=== PATIENT | female | born 1995 | race Caucasian/White ===

== ENCOUNTER 2016-09-12 07:56 | Emergency (ER) | payer MEDICAID, OTHER ==
[2016-09-12 08:03] VITALS: BP 134/78
[2016-09-12] MEDS ORDERED: HYDROmorphone 1 MG/ML Syringe IM ONE (08:24)
--- NOTE | 2016-09-12 08:31 | EDM.PDOC ---
ED HPI GI/ABDOMINAL - General Chief Complaint: Abdominal Pain Stated Complaint: MISCARRIAGE BAD PAIN Time Seen by Provider: 09/12/16 08:18 Source of Information: Reports: Patient History Limitations: Reports: No limitations - History of Present Illness INITIAL COMMENTS - FREE TEXT/NARRATIVE: History and physical: History of present illness: [Comes to the ER complaining of lower abdominal and low back cramping. Rates the cramping as "severe". Went to the ER on 09/10/16 in [place], and was told that she is having a miscarriage. Had an ultrasound and lab work at that time, which confirmed miscarriage. She was approx 13 weeks and 4 days . She continues to experience bleeding, cramping, and passing clots. Pain has worsened over the past 1-2 days. Feels like menstrual cramps, but is more intense. She denies fever, chills, nausea and vomiting. No chest pain, SOA or dyspnea. She took 1 Tramadol just prior to arrival that she had at home from a previous injury. Otherwise, has no complaints or concerns. ] Review of Systems: As per history of present illness and below otherwise all systems reviewed and negative. Past medical history: As per history of present illness and as reviewed below otherwise noncontributory. Surgical history: As per history of present illness and is reviewed below other [place]oya noncontributory. Social history: No reported history of drug or alcohol abuse. Family history: As per history of present illness and is reviewed below otherwise noncontributory. Physical exam: HEENT: Atraumatic, normocephalic. Lungs: Clear to auscultation, breath sounds equal bilaterally, chest nontender. Heart: S1-S2, regular, negative for clicks, rubs, or JVD. Abdomen: Soft, nondistended, nontender with palpation. Negative for masses or hepatosplenomegaly. Pelvis: Stable, nontender. Genitourinary: Deferred. Rectal: Deferred. Neuro: Awake, alert, oriented. Cranial nerves II through XII unremarkable. Psych: well groomed, makes good eye contact. Diagnostics: [Beta quant Hcg] Therapeutics: [Dilaudid 1 mg] Impression: abdominal pain [Spontaneous miscarriage] Plan: [Discussed w/ pt that abdominal cramping and low back discomfort certainly are not unexpected during a miscarriage, and that symptoms should resolve in time. Pt is given Dilaudid 1 mg IM in ER. Rx for hydrocodone 5/325mg (#10) si po q 6 hours prn pain 0 RF's given. Tylenol alternating with ibuprofen prn mild to moderate pain. Follow up with Dr. Rodrigez in next 48-72 hours. She is in agreement w/ today's plan. All questions are answered and concerns are addressed. ] Definitive disposition and diagnosis is appropriate pending reevaluation and review of above. - Related Data Allergies/ADRs: Allergies Allergy/AdvReac Type Severity Reaction Status Date / Time doxycycline Allergy Other Verified 09/12/16 08:04 latex Allergy Rash Verified 09/12/16 08:04 Penicillins Allergy Hives Verified 09/12/16 08:04 Home Meds: Home Meds traMADol [Ultram] 50 mg PO Q6H PRN 09/12/16 [History] Past Medical History TUBE BENDER HAND History: Reports: Spontaneous - Past Surgical History HEENT Surgical History: Reports: Other (see below) Other HEENT Surgeries/Procedures: wisdom teeth extraction Social & Family History - Family History Family Medical History: Noncontributory - Tobacco Use Smoking Status *Q: Current Every Day Smoker Years of Tobacco use: 4 Packs/Tins Daily: 0.5 - Caffeine Use Caffeine Use: Reports: Soda - Recreational Drug Use Recreational Drug Use: No ED ROS GENERAL - Review of Systems Review Of Systems: ROS reveals no pertinent complaints other than HPI. ED EXAM, GI/ABD - Physical Exam Exam: See Below Course - Vital Signs Last Recorded V/S: Last Vital Signs Temp 98.1 F 09/12/16 08:00 Pulse 83 09/12/16 08:00 Resp 18 09/12/16 08:00 BP 134/78 09/12/16 08:00 Pulse Ox 99 09/12/16 08:00 - Orders/Labs/Meds Orders: Active Orders 24 hr Category Date Time Status QUANTITATIVE [facility] [REF] Stat Lab 09/12/16 08:30 Received Meds: Medications Discontinued Medications Generic Name Dose Route Start Last Admin Trade Name Freq PRN Reason Stop Dose Admin Hydromorphone HCl 1 mg 09/12/16 08:24 09/12/16 08:41 Dilaudid IM 09/12/16 08:25 1 mg ONETIME ONE Administration Departure - Departure Time of Disposition: 08:30 Disposition: Home, Self-Care 01 Condition: good Clinical Impression: Spontaneous miscarriage Instructions: Miscarriage, [id number] Referrals: PCP,None [Primary Care Provider] - Forms: ED Department Discharge Additional Instructions: The following information is given to patients seen in the emergency department who are being discharged home. This information is to outline your options for follow-up care and provides all patient seen in our emergency department with a follow-up referral. The need for follow-up, as well as the timing and circumstances, are variable depending upon the specifics of each emergency department visit. If you don't have a primary care physician on staff, we will provide you with a referral. We always advise to contact your personal physician following an emergency department visit to inform them of the circumstances of the visit and for follow-up with them and/or the need for any referrals to a consulting specialist. The emergency department will also refer you to a specialist when appropriate. This referral assures that you have the opportunity for follow-up care with a specialist. All of these measures are taken in an effort to provide you with optimal care, which includes your follow-up. Under all circumstances we always encourage you to contact your private physician who remains a resource for coordinating your care. When calling for follow-up care, please make the office aware that this follow-up is from your recent emergency room visit. If for any reason you are refused follow-up please contact the [facility] emergency department at and ask to speak to [place] [address] Followup at the clinic listed above with Dr. rodrigez tomorrow or Monday. Recommend Tylenol 650 mg alternating with ibuprofen 600 mg every 6 hours. You are given a prescription for hydrocodone. You can take one tablet every 6 hours as needed for moderate to severe cramping. Push fluids, get plenty of rest. Return to ER as needed and as discussed. - My Orders Last 24 Hours: My Active Orders 09/12/16 08:30 QUANTITATIVE [facility] [REF] Stat - Assessment/Plan Last 24 Hours: My Active Orders 09/12/16 08:30 QUANTITATIVE [facility] [REF] Stat
== END 2016-09-12 08:47 | disposition home or self-care (01) ==
LOC: CC.ED 07:56
DX: O03.9 Complete or unspecified spontaneous abortion without complication (principal); F17.210 Nicotine dependence, cigarettes, uncomplicated; Z88.0 Allergy status to penicillin; Z91.040 Latex allergy status; Z88.8 Allergy status to other drugs, medicaments and biological substances
CPT/HCPCS: 36415; 84702; 96372; 99283; J1170